=== PATIENT | male | born 1955 | race Caucasian/White ===

== ENCOUNTER 2024-02-26 08:41 | Day surgery (SDC) | payer OTHER ==
[2024-02-26 08:39] LABS: Absolute Basophils 0.1 K/uL (0-0.5); Absolute Eosinophils 0.1 K/uL (0-0.5); Absolute Lymphocytes (CBC) 2.3 K/uL (0.7-4.9); Absolute Monocytes 0.6 K/uL (0.1-1.3); Absolute Neutrophil 4.3 K/uL (1.8-8.0); Basophils % 1.2 % (0-1.3); Eosinophils % 1.5 % (0-4.4); Hematocrit 48.3 % (39.6-49.0); Hemoglobin 15.8 g/dL (13.6-17.9); Lymphocytes % 30.7 % (15.3-44.8); MCH 32.1 pg (27.0-35.0); MCHC 32.8 g/dL (32.0-36.0); MCV 98.1 fL (80-100); MPV 8.4 fL (7.6-11.3); Monocytes % 8.7 % (3.3-12.3); Neutrophils % 57.9 % (41.7-73.7); Platelets 340 thou/uL (152-406); RBC Red Blood Cell Count 4.92 M/uL (4.33-5.43); Red Cell Distribution Width 14.9 % (12.1-15.2)
[2024-02-26 08:54] LABS: Anion Gap 7.1 mEq/L (5.0-15.0); Potassium 5.1 mEq/L (3.5-5.1)
--- NOTE | 2024-02-26 09:10 | RAD REPORT ---
Procedure: Chest Pa And Lat (2 Views) HISTORY: Preop for hernia repair. Hypertension COMPARISON: 2009 FINDINGS: The lungs appear clear of acute infiltrate. Small metallic structure overlying the left lower lateral chest unchanged. No significant pleural effusion noted. The heart appears borderline enlarged. IMPRESSION: No acute abnormality is displayed.
[2024-02-26] MEDS: Ringers Lactate 1,000 ML IV ONE (09:35)
[2024-02-26] MEDS: FAMOTIDINE 20 MG/2 ML VIAL IV ONE (09:53)
[2024-02-26] MEDS: CEFAZOLIN SODIUM 1 GM/VIAL ONE (09:55)
[2024-02-26] MEDS ORDERED: LIDOCAINE 1% MPF 5 ML VIAL ONE (10:20)
[2024-02-26] MEDS ORDERED: KETOROLAC 30 MG/ML INJ ONE (10:20)
[2024-02-26] MEDS ORDERED: ONDANSETRON 4 MG/2 ML VIAL ONE (10:21)
[2024-02-26] MEDS ORDERED: MIDAZOLAM HCL 2 MG/2 ML INJ ONE (10:21)
[2024-02-26] MEDS ORDERED: propofoL 200 MG/20 ML VIAL IV ONE (10:21)
[2024-02-26] MEDS ORDERED: FENTANYL CITR 100 MCG/2 ML ONE (10:21)
[2024-02-26] MEDS ORDERED: GLYCOPYRROLATE 0.2 MG/ML SYR ONE (11:27)
--- NOTE | 2024-02-26 12:24 | P.BOP ---
Preoperative diagnosis: incarcerated tender R inguinal hernia, tender upper ventral abd wall subq m Postoperative diagnosis: same Primary procedure: 1. Open repair of incarcerated tender R inguinal hernia with mesh Secondary procedure: 2. Excisional biopsy of tender upper ventral abd wall subq mass Estimated blood loss: <20cc Specimen: hernia content , subQ mass Findings: see dicta Anesthesia: General Complications: None Transferred to: Recovery Room Condition: Good
[2024-02-26] MEDS ORDERED: Ringers Lactate 1,000 ML IV ONE (12:30)
[2024-02-26] MEDS: HYDROMORPHONE HCL 1 MG/ML INJ ONE (12:45)
[2024-02-26 12:53] VITALS: TEMP 97
[2024-02-26] MEDS ORDERED: TAMSULOSIN 0.4 MG SR CAP ONE (13:07)
[2024-02-26] MEDS: TAMSULOSIN 0.4 MG SR CAP PO ONE (13:10)
[2024-02-26] MEDS: CODEINE 30MG/APAP 300MG TAB ONE (13:10)
--- NOTE | 2024-02-26 14:45 | EKG ---
Test Date: 2024-02-26 Test Time: 08:28:16 [employer] Estate List[employer] Consultant: NOHEMY MEASUREMENT RESULTS: Intervals: Rate: 53 OR: 192 QRSD: 74 QT: 422 QTc: 395 [place]: P: 46 OR: 192 QRS: 50 T: 65 INTERPRETIVE STATEMENTS: Sinus bradycardia Otherwise normal ECG Compared to ECG 08/08/2008 08:25:25 Sinus rhythm no longer present Electronically Signed On 02-26-24 14:45:19 CDT by Pineda Barrera
[2024-02-26 15:42] VITALS: BP 114/71; O2SAT 94
== END 2024-02-26 14:20 | disposition home or self-care (01) ==
LOC: OR 08:41
PROVIDERS: ATTEND Surgery
PROC: 0YU50JZ Supplement Right Inguinal Region with Synthetic Substitute, Open Approach (ICD-10-PCS; principal; 2024-02-26 12:15)
PROC: 0WBF0ZZ Excision of Abdominal Wall, Open Approach (ICD-10-PCS; 2024-02-26 12:15)
DX: K40.30 Unilateral inguinal hernia, with obstruction, without gangrene, not specified as recurrent (principal); D17.1 Benign lipomatous neoplasm of skin and subcutaneous tissue of trunk
CPT/HCPCS: 93005; 85025; 80048; 36415; 88302; 88305; 71046; 49507; 22903; J2704; J2003; J2250; J3010; J1171; J2405; J7120 ×2; J0690; 88304

== ENCOUNTER 2024-03-24 06:09 | Day surgery (SDC) | payer OTHER ==
[2024-03-24] MEDS: Ringers Lactate 1,000 ML IV ONE (06:30)
[2024-03-24] MEDS ORDERED: propofoL 200 MG/20 ML VIAL IV ONE (06:44)
[2024-03-24] MEDS ORDERED: ONDANSETRON 4 MG/2 ML VIAL ONE (06:44)
[2024-03-24] MEDS ORDERED: FENTANYL CITR 100 MCG/2 ML ONE (06:44)
[2024-03-24] MEDS ORDERED: LIDOCAINE 2% MPF 5 ML VIAL ONE (06:44)
[2024-03-24] MEDS ORDERED: dexAMETHasone 10 MG/ML VIAL ONE (07:16)
[2024-03-24] MEDS ORDERED: GLYCOPYRROLATE 0.2 MG/ML SYR ONE (07:17)
[2024-03-24] MEDS: CEFAZOLIN SODIUM 1 GM/VIAL ONE (07:18)
[2024-03-24 08:53] VITALS: BP 117/70; TEMP 97.7; O2SAT 98
--- NOTE | 2024-03-27 06:28 | OP ---
Date of Procedure: 03/24/2024 Surgeon: Jaguar Fong MD Preoperative Diagnosis: Left knee pain with mechanical symptoms, probable meniscal tear or tears. Postoperative Diagnosis: Left knee medial meniscal tear, which was complex and displaceable. Procedure: Left knee arthroscopy with debridement of medial meniscal tear. Estimated Blood Loss: Less than 10 cc. Complications: There were no complications. Specimen: No pathology specimen sent. Indications For Operation: Mr. Baker is a 69-year-old gentleman who describes mechanical symptoms casepr ch as locking, popping, and swelling. He says these symptoms are intermittent. He says they have be en going on for some time and do not show any sign of abating using conservative care. He had an MRI , which demonstrated a probable complex medial meniscal tear. Risks, benefits, and alternatives of d ifferent methods of treating this were discussed with him. He selects left knee arthroscopy with pro bable meniscal debridement and agrees to proceed. Description Of Procedure: The patient was taken to the operating room, placed in supine position. G eneral anesthesia was obtained by anesthesia staff. Following this, a well-padded tourniquet was reymundo kacey on superior left leg. Left lower extremity was then prepped and draped in usual sterile fashion for the procedure. A standard superior medial arthroscopy portal was then placed with liberation of scanty joint fluid, which appears normal. A standard inferolateral arthroscopy portal was then place d and the camera was placed atraumatically with 1 pass. The knee was then sequentially examined incl uding suprapatellar pouch, medial and lateral gutters, medial and lateral compartments as well as the notch and patellofemoral joint. Pertinent findings included very mild arthritic changes of medial f emoral compartment as well as patellofemoral joint. Also seen was a complex medial meniscal tear. A standard inferior medial arthroscopy portal was then placed using a needle for localization to ensur e good placement. After this, probe was then placed in the knee and does confirm that there are mult iple leaves of displaceable medial meniscal tear. A combination of a 3.5 shaver, 4.5 shaver, and bustillos d instruments were then used to debride back the meniscal tissue to a firm hook, stable, well contour ed base. There was still a small evident horizontal tear, but this was checked with a probe. It was doubly found to be probe stable. Attention was then turned to the lateral side where this could als o be probed. There was found to be no displaceable meniscal tissue torn there. The knee was again e xamined in all the above areas with no further pathology seen, which was amenable to arthroscopic int ervention. The arthroscopy instruments were removed. The inferior arthroscopy portals were then sta pled shut. The medial arthroscopy portal superiorly was used for placement of Marcaine. This was th en stapled. The patient was placed in a very well-padded sterile dressing, awakened, and taken to re covery room in good condition. There were no complications. SE/MODL Voice ID: [id number] Report ID: [id number]
== END 2024-03-24 09:46 | disposition home or self-care (01) ==
LOC: OR 06:09
PROVIDERS: ATTEND Orthopaedic Surgery
PROC: 0SBD4ZZ Excision of Left Knee Joint, Percutaneous Endoscopic Approach (ICD-10-PCS; principal; 2024-03-24 07:00)
DX: S83.242D Other tear of medial meniscus, current injury, left knee, subsequent encounter (principal); I10 Essential (primary) hypertension; E78.00 Pure hypercholesterolemia, unspecified
CPT/HCPCS: 29881; J2704; J2003; J3010; J1100; J2405; J7120; J0690